=== PATIENT | female | born 2000 | race African-American/Black ===

== ENCOUNTER 2022-10-16 17:35 | Observation (INO) | payer OTHER ==
[~2022-10-16] VITALS: Ht 170.2 cm; Wt 94.8 kg
== END 2022-10-16 18:22 | disposition home or self-care (01) ==
LOC: SPU 17:35
PROVIDERS: ADMIT Obstetrics & Gynecology; ATTEND Obstetrics & Gynecology
DX: O26.893 Other specified pregnancy related conditions, third trimester (principal); R10.30 Lower abdominal pain, unspecified; O99.891 Other specified diseases and conditions complicating pregnancy; M54.9 Dorsalgia, unspecified; Z3A.31 31 weeks gestation of pregnancy
CPT/HCPCS: G0379; G0378